=== PATIENT | female | born 2000 | race Caucasian/White ===

== ENCOUNTER 2018-10-08 15:01 | Emergency (ER) | payer OTHER ==
[~2018-10-08] VITALS: Ht 165.1 cm; Wt 60.0 kg
[~2018-10-08 15:01] MED LIST: AUGMENTIN400 MG/5 M OR; FLOXIN OTIC OT; [UNRECOGNIZED DRUG - REMARK]
[2018-10-08] MEDS ORDERED: KEFLEX500 M1 PO (16:13)
[2018-10-08] MEDS ORDERED: BACTRIM DS1 TAB PO (16:13)
[2018-10-08 16:18] VITALS: BP 107/77
== END 2018-10-08 16:18 | disposition home or self-care (01) | DRG 759 ==
LOC: ED 15:01
DX: N75.1 Abscess of Bartholin's gland (principal)